=== PATIENT | male | born 1995 | race Caucasian/White ===

== ENCOUNTER 2024-05-30 22:05 | Inpatient (IN) | payer MEDICAID, SELFPAY ==
--- NOTE | 2024-05-30 | ECG_ITS ---
Test Reason : drug use Blood Pressure : / mmHG Vent. Rate : 081 BPM Atrial Rate : 081 BPM P-R Int : 128 ms QRS Dur : 084 ms QT Int : 394 ms P-R-T Axes : 030 069 045 degrees QTc Int : 457 ms Normal sinus rhythm with sinus arrhythmia Normal ECG No previous ECGs available Referred By: Generic ED Physician Electronically Signed By:Willem Sebastian
[2024-05-30 22:25] VITALS: BP 153/72; PULSE 83; PULSE 86; RESP 14; TEMP 37.3; O2SAT 99; BMI 28.8
[2024-05-30 23:04] LABS: MANUAL DIFF FLAG NO
[2024-05-30 23:10] LABS: Basophils Percent Auto 0.3 % (0-2); Eosinophils Percent Auto 0.3 % (0-4); Hematocrit 37.2 % (42.0-52.0); Hemoglobin 13.3 g/dl (14.0-18.0); Imm Gran Abs Auto 0.02 X10*3/uL (0.00-0.03); Imm Gran Pct Auto 0.2 % (0.0-0.4); Lymphocytes Absolute Auto 2.3 X10*3/uL (1.2-4.9); Lymphocytes Percent Auto 21.1 % (20-40); Mean Corpuscular HGB Conc 35.8 g/dl (31.0-36.0); Mean Corpuscular Volume 89.6 fL (80.0-98.0); Monocytes Absolute Auto 0.9 X10*3/uL (0.1-1.2); Monocytes Percent Auto 7.9 % (2-11); Neutrophils Absolute Auto 7.6 x10*3/uL (2.0-8.3); Neutrophils Percent Auto 70.2 % (45-73); Platelet Count 277 X10*3/uL (160-400); Red Blood Count 4.15 X10*6/uL (4.60-5.80); Red Cell Distribution Width 13.3 % (11.0-16.0); White Blood Count 10.8 X10*3/uL (4.8-10.8)
[2024-05-30 23:21] LABS: Amphetamine Screen Urine Not Detected (Not Detect); Barbiturates, Urine Not Detected (Not Detect); Benzodiazepines Screen Urine Not Detected (Not Detect); Buprenorphine Scr Positive (Not Detect); Cannabinoid Screen Urine Not Detected (Not Detect); Cocaine Screen Urine POSITIVE (Not Detect); Fentanyl, urine POSITIVE (Not Detect); Methadone Screen, Urine Not Detected (Not Detect); Opiate Screen Urine POSITIVE (Not Detect); Oxycodone Screen Urine Not Detected (Not Detect); Phencyclidine Screen Urine Not Detected (Not Detect)
--- NOTE | 2024-05-30 23:29 | ED.PSYCH ---
HPI - Psych General Chief Complaint: Psychiatric Symptoms Stated Complaint: heart palpatations Time Seen by Provider: 05/30/24 22:52 Source: patient and EMS Mode of arrival: EMS Limitations: no limitations History of Present Illness HPI Narrative: Patient is a 28-year-old male who presents emergency department for evaluation. He states of for approximately 6 months he has been experiencing auditory hallucinations, however over the past month they have been getting worrisome have changed in nature. He states that they are aggressive and threatening. ?I am going to pull your eyes out?, ?I am going to kill you and slipped your throat?. Also endorsed to nursing staff that he is having visual hallucinations seeing ?demons? he does not often this complaint to myself personally. He states he has never been diagnosed with schizophrenia in the past. Does not have a therapist or a psychiatrist. She does admit to polysubstance use, denies any recent new substances. He has been experiencing occasional episodes of chest ?bubbling and palpitations?. He can not provide me much history as to when this appears but it has been intermittent ?for awhile?. Denies headache, vision changes, neck pain, chest pain, shortness of breath, numbness or tingling of the extremities, abdominal pain, nausea, vomiting, genitourinary symptoms. Related Data Home Medications ?Medication ?Instructions ?Recorded ?Confirmed No Known Home Meds 05/31/24 05/31/24 Allergies Allergy/AdvReac Type Severity Reaction Status Date / Time No Known Allergies Allergy Verified 05/30/24 22:34 Review of Systems Review of Systems: Yes all other systems are reviewed and are negative PMFSH Past Medical History Attestation statement: The following information was validated with the patient. Source: old records reviewed Social History Social History Alcohol intake: current Alcohol intake frequency: 3 or more drinks per day Alcohol type: beer Smoked in Last 30 Days: Yes Use of substances other than those prescribed or required for medical reasons: Yes Substance Use Type: Crack/Cocaine and IV Drugs Substance Use Frequency: Daily Last Used Substance: Hours (ago) Any prior treatment program specific to substance use: Yes Advance Directives: No Advance Directives Information Provided: Yes Physical Exam Vital Signs: Vital Signs: Last Vital Signs Temp 97.6 F 05/31/24 03:36 Pulse 78 05/31/24 03:36 Resp 9 L 05/31/24 03:36 BP 126/57 L 05/31/24 02:31 Pulse Ox 98 05/31/24 03:36 O2 Del Method Room Air 05/31/24 03:36 BMI result Body Mass Index 28.8 Appearance: Alert.?Oriented to person, place and time. No acute distress.?Normal affect. Eyes: Pupils equal, round and reactive to light.? ENT: Pharynx normal.?? Neck: Normal inspection.? Neck supple.?? CVS: Heart sounds normal. Normal heart rate and rhythm.? Pulses normal.?? Respiratory: No respiratory distress.? Lung sounds clear to auscultation bilaterally?? Abdomen: Soft and non-tender. Normoactive bowel sounds. Skin: Skin warm and dry.? Normal skin color.? Extremities: No lower extremity edema.? Neuro: Moves all extremities spontaneously. Sensation intact bilaterally. CN II-XII intact. No focal neuro deficits. Ambulates with normal steady gait. Medications Administered Discontinued Medications Generic Name Dose Route Start Last Admin Trade Name Freq PRN Reason Stop Dose Admin Lorazepam 2 mg 05/31/24 03:29 05/31/24 03:38 Lorazepam 1 Mg Tablet PO 05/31/24 03:30 2 mg ONCE ONE Administration Medical Decision Making Medical Decision Making MDM Narrative: Patient is a 28-year-old male who presents emergency department for evaluation of auditory and visual hallucinations in addition to palpitations as per HPI. Overall he is well-appearing, nontoxic, afebrile. No respiratory distress. Speaking clear full sentences. Seems to provide a clear history of auditory hallucinations over the past 6 months have changed in quality and becoming more threatening in nature over the past month. He denies suicidal or homicidal ideations. He does admit to polysubstance use denies any new illicit drug usage he has not previously experienced in the past. 05/31/2024 at 07:07 hours, Dr. Prasanth Denton's note Physician observation continued 28-year-old male who presents emergency department for auditory hallucinations. Patient's urine tox screen was positive for opiates, buprenorphine, fentanyl, cocaine. Patient was been in the emergency department for 9 hours. Patient has been seen by the care team and is in in-patient bed search. No reported incidents on this patient by the overnight nursing staff. Patient will remain in the emergency department Behavioral Health Unit until disposition can be determined or until patient's symptoms improve over time. Differential Diagnosis Differential Diagnoses: The differential diagnosis associated with the presentation includes Palpitations; and anemia, arrhythmia, electrolyte derangement, anxiety, polysubstance use Auditory and visual hallucinations; polysubstance use, schizophrenia, psychosis Admission/Observation Consideration of admission/observation: Escalation of care including admission/observation considered Patient is being observed in the Emergency Department for auditory and visual hallucinations of onset Observation time was started at 00:00 on 05/31/2024.?The patient is currently stable and non-toxic appearing. Observation is being initiated in the Emergency Department to allow time to help differentiate if the patient's hallucinations is due to Substance Induced psychosis, bipolar que, anxiety, and Schizophrenia. The patient will receive frequent psychiatric assessments from the provider as well as from nursing staff. The patient will also be monitored for the need of PRN agitation medications such as Haldol, Ativan, and Benadryl. Consult Healthcare Provider Management of the patient was discussed with: Behavioral Health Provider Lab Data MDM Lab Attestation statement: I reviewed the patient's lab results. CBC is without leukocytosis, has a very mild normocytic anemia that does not meet transfusion criteria; hemoglobin of 13.3 hematocrit 37.2. No electrolyte derangement. No BALDEV. High sensitive troponin within normal range. TSH is normal. Urine toxicology positive for opiates, Suboxone, fentanyl, cocaine. Alcohol level nondetectable. Viral serologies are negative. 05/30/24 22:55 05/30/24 22:55 Labs: Lab Results 05/30/24 05/30/24 Range/Units 22:55 22:57 WBC 10.8 (4.8-10.8) X10*3/uL RBC 4.15 L (4.60-5.80) X10*6/uL Hgb 13.3 L (14.0-18.0) g/dl Hct 37.2 L (42.0-52.0) % MCV 89.6 (80.0-98.0) fL MCH 32.0 (27.0-33.0) pg MCHC 35.8 (31.0-36.0) g/dl RDW 13.3 (11.0-16.0) % Plt Count 277 (160-400) X10*3/uL MPV 9.0 L (9.4-12.4) fL Immature Gran % (Auto) 0.2 (0.0-0.4) % Neut % (Auto) 70.2 (45-73) % Lymph % (Auto) 21.1 (20-40) % Campbell % (Auto) 7.9 (2-11) % Eos % (Auto) 0.3 (0-4) % Baso % (Auto) 0.3 (0-2) % Lymph # (Auto) 2.3 (1.2-4.9) X10*3/uL Campbell # (Auto) 0.9 (0.1-1.2) X10*3/uL Eos # (Auto) 0.0 (0.0-0.4) X10*3/uL Baso # (Auto) 0.0 (0.0-0.2) X10*3/uL Abs Immat Gran (auto) 0.02 (0.00-0.03) X10*3/uL Absolute Neuts (auto) 7.6 (2.0-8.3) x10*3/uL Absolute Nucleated RBC 0.000 (0.0-0.012) X10*3/uL Nucleated RBC % (auto) 0.0 (0.0-0.2) /100WBC Sodium 141 (135-145) mmol/L Potassium 3.7 (3.3-5.1) mmol/L Chloride 105 (96-108) mmol/L Carbon Dioxide 25 (22-29) mmol/L Anion Gap 15 (12-20) BUN 19 H (9-16) mg/dL Creatinine 0.90 (0.5-1.4) mg/dL Estim Creat Clear Calc 145.8 Estimated GFR > 60 Random Glucose 97 (60-115) mg/dL Calcium 9.4 (8.4-10.2) mg/dL Total Bilirubin 0.8 (0.0-1.0) mg/dL AST 113 H (5-37) U/L ALT 84 H (0-40) U/L Alkaline Phosphatase 69 (39-117) U/L Troponin I High Sens 11.2 (<3.5-35.0) ng/L Total Protein 7.7 (6.5-8.0) g/dL Albumin 4.3 (3.5-5.0) g/dL TSH 0.56 Cancelled (0.32-4.0) uIU/mL Urine Opiates Screen POSITIVE H (Not Detect) Ur Buprenorphine Scrn Positive H (Not Detect) ng/mL Ur Oxycodone Screen Not Detected (Not Detect) ng/mL Urine Methadone Screen Not Detected (Not Detect) ng/mL Urine Fentanyl Screen POSITIVE H (Not Detect) Ur Barbiturates Screen Not Detected (Not Detect) Ur Phencyclidine Scrn Not Detected (Not Detect) Ur Amphetamines Screen Not Detected (Not Detect) U Benzodiazepines Scrn Not Detected (Not Detect) Urine Cocaine Screen POSITIVE H (Not Detect) U Marijuana (THC) Screen Not Detected (Not Detect) Ethyl Alcohol < 10 mg/dL Influenza Type A (PCR) NEGATIVE (Negative) Influenza Type B (PCR) NEGATIVE (Negative) RSV RNA Qual (PCR) NEGATIVE (Negative) SARS-CoV-2 RNA (RT-PCR) NEGATIVE (Negative) Independent Interpretation I performed an independent interpretation of an: EKG Interpretation: EKG revealing a normal sinus rhythm with ventricular rate of 81, normal ERNESTO, QTC 457, no ST elevation, no ST depression. Chronic Conditions Patient?s care impacted by: Other (See narrative above) Discharge Plan Discharge Clinical Impression: Auditory hallucination, Palpitations Patient Disposition: Still a Patient Prescriptions: No Action No Known Home Meds Interventions: [place]-Suicide Risk Severity Scale Last Done: 05/30/24 22:35 Print Language: [place]ese
[2024-05-30 23:31] LABS: Troponin-I High Sensitivity 11.2 ng/L (<3.5-35.0)
[2024-05-30 23:32] LABS: Albumin Level 4.3 g/dL (3.5-5.0); Alkaline Phosphatase 69 U/L (39-117); Anion Gap 15 (12-20); Aspartate Amino Transferase 113 U/L (5-37); Bilirubin Total 0.8 mg/dL (0.0-1.0); Blood Urea Nitrogen 19 mg/dL (9-16); Calcium 9.4 mg/dL (8.4-10.2); Carbon Dioxide 25 mmol/L (22-29); Chloride 105 mmol/L (96-108); Creatinine Clr Calc Pharmacy 145.8; Estimated Glomerular Filt Rate > 60; Ethanol < 10 mg/dL; Glucose Random 97 mg/dL (60-115); Potassium 3.7 mmol/L (3.3-5.1); Sodium 141 mmol/L (135-145); Total Protein 7.7 g/dL (6.5-8.0)
[2024-05-30 23:38] LABS: Alanine Aminotransferase 84 U/L (0-40)
[2024-05-30 23:48] LABS: Influenza A PCR NEGATIVE (Negative); Influenza B PCR NEGATIVE (Negative); Resp Syncy Virus RNA Qual PCR NEGATIVE (Negative); SARS COV2 PCR INHOUSE NEGATIVE (Negative)
[2024-05-30 23:51] LABS: TSH reflex Free T4 0.56 uIU/mL (0.32-4.0)
[2024-05-31 00:18] VITALS: BP 121/66; PULSE 72; RESP 12; TEMP 36.7; O2SAT 95
[2024-05-31 02:31] VITALS: BP 126/57; PULSE 71; RESP 13
[2024-05-31 03:36] VITALS: PULSE 78; RESP 9; TEMP 36.4; O2SAT 98
[2024-05-31] MEDS: LORazepam 1 MG TABLET 2 MG PO ×2 (03:38→20:49)
--- NOTE | 2024-05-31 06:00 | PC.NURSE ---
patient appears to be having night terrors/nightmares. patient has had 3 episodes of calling out as yet.
[2024-05-31 09:06] VITALS: BP 129/71; PULSE 65; RESP 16; TEMP 36.6; O2SAT 97
--- NOTE | 2024-05-31 10:46 | PHA.MEDREC ---
Addendum entered by Emiliano Fontana 05/31/24 10:55: reviewed Original Note: Pharmacy Consult ? Medication Reconciliation Pharmacy reviewed med rec done by nursing. No Known Home Meds confirmed on med rec and after looking at and updating claims, no medication history is found at this time for this patient.
[2024-05-31 11:49] VITALS: BMI 28.3
[2024-05-31 11:50] VITALS: BP 153/78; PULSE 86; RESP 18; TEMP 36.9; O2SAT 96
--- NOTE | 2024-05-31 17:18 | PC.ADMIT ---
Talon was admitted to approx at 1150, on a 12b. He self-presented to the ED for increased AVH. Talon denies any past medical history. Talon reportedly walked to [facility] ED, from [place]. His feet were raw & macerated upon assessment, no open wounds, few callouses. Skin check unremarkable, other than a superficial scratch noted on his left interior forearm. Pt denies self-harm, denies SI/HI. During Care Team assessment, pt reported that he had been experiencing both AH & VH which had been worsening over last month.Talon reported that he fled his father's house, where he has been living, because he could here the voices saying they were going to cut him up & he could see demons in his room. Upon intake, patient states that he wants to be discharged. When asked why he said all of that, he states I made it all up, because I'd walked too far & I didn't think they would let me sleep here the night. Provider explained that he will need to stay and be evaluated. He was cooperative with rest of the process. Talon endorses regular use of cocaine & heroin, in addition to daily alcohol consumption of six beers. Tox screen positive for fentanyl, opiates, cocaine & suboxone. Talon declined to sign a CV and declined to sign any releases. He is placed on regular diet and 15 minute safety checks at this time.?
[2024-05-31] MEDS: Buprenorphine/Naloxone 8/2 mg FILM 1 FILM SUBLINGUAL (18:15)
[2024-05-31 20:00] VITALS: BP 128/85; PULSE 76; RESP 15; TEMP 36.9; O2SAT 96
[2024-05-31] MEDS: traZODone HCL 50 MG TABLET PO (20:46)
[2024-05-31] MEDS: hydrOXYzine HCL 25 MG TABLET PO (20:46)
[2024-06-01 08:00] VITALS: BP 127/66; PULSE 78; RESP 20; TEMP 36.7; O2SAT 99
--- NOTE | 2024-06-01 09:00 | HO.PSYADMNOT ---
HPI Date of Service: 06/01/24 Chief Complaint: Auditory and visual perceptual alterations Sources of Information: patient interviewed, chart reviewed and crisis/core team assessment reviewed HPI Subjective Notes: Gloria Warning and Conditional Voluntary Narrative: Patient is a 28-year-old male with history of psychotic symptoms, polysubstance abuse with IV opioid, crack cocaine use disorder who self presents for paranoid delusions and hearing frightening AH. When presenting in the ED, patient reported to staff there that he was hearing voices saying? they are going to try equalize him and cut him up or they are going to rip his eyes out.? ?He reported seeing demons or black or herbs and expressed fear that they were sent to kill him. ?Patient reports hearing voices over the past month that have worsened and that but ran away from his home where he was living in [place] with his father, because of the voices and what they were saying. Patient gave details saying there were Two different voices, one is loud saying they will rip him up, cut his eyes out and another which is softer saying they are going to tranquilizers him 1st and then cut him up. He reported delusional thought that someone put witchcraft on him; he does not think it is his mind playing tricks on him and AH is keeping him from sleeping. Today on unit patient reports to administrative underwriter that he made all of this up. He denies any AH at all or any paranoid delusions. He said he no longer wanted to live at his father's house, not getting along with his father and so left to come down to [facility]. His plan was to [place] kidney thought would only take few hours but he was not able to get a ride and so ended up walking for 3 days. He reports that When he got here his feet were extremely cold and so he came to the emergency room. Because he was worried about being turned away, he says made up everything about AH and paranoid delusions, or any history of AVH. He denies any SI or HI or any history of SI at all. He acknowledges that he uses crack cocaine, fentanyl; says very little alcohol use. Patient reports he has some depression but thinks it is mostly from ADHD and says he would like to be on stimulant medication. Patient denies any history of manic type episodes or behaviors. Patient seen around 11:00 on 06/01 Past Psychiatric History: discharged from [facility] a few months ago; says multiple admissions there Medical Evaluation Reviewed: Yes Mild to moderately elevated LFTs [facility] Medical History (Updated 06/01/24 @ 15:11 by Janak Guzman MD) Opioid use disorder Cocaine use disorder Depression, major, recurrent, mild Family History: Denies Social History: Born in [place] Was living with his father in [place]; says not a good relationship Says almost but did not graduate high school Patient reports he has children but he never sees them Substance History: Currently using crack cocaine and IV fentanyl/heroin Started using cannabis and cocaine at 14 years old Started using heroin/fentanyl at 19 years old including IV drug use Trauma History: Deferred Diagnostics Vital Signs (24Hr): Vital Signs - 24 hr 05/31/24 09:06 05/31/24 11:50 05/31/24 20:00 Temperature 97.9 F 98.5 F 98.5 F Pulse Rate 65 86 76 Respiratory Rate 16 18 15 Blood Pressure 129/71 153/78 H 128/85 Pulse Oximetry 97 96 96 Oxygen Delivery Method Room Air Room Air BMI result Body Mass Index 28.3 Labs 05/30/24 22:55 06/01/24 11:18 Labs: Laboratory Results - last 48 hr 05/30/24 05/30/24 22:55 22:57 WBC 10.8 RBC 4.15 L Hgb 13.3 L Hct 37.2 L MCV 89.6 MCH 32.0 MCHC 35.8 RDW 13.3 Plt Count 277 MPV 9.0 L Immature Gran % (Auto) 0.2 Neut % (Auto) 70.2 Lymph % (Auto) 21.1 Bath % (Auto) 7.9 Eos % (Auto) 0.3 Baso % (Auto) 0.3 Lymph # (Auto) 2.3 Bath # (Auto) 0.9 Eos # (Auto) 0.0 Baso # (Auto) 0.0 Abs Immat Gran (auto) 0.02 Absolute Neuts (auto) 7.6 Absolute Nucleated RBC 0.000 Nucleated RBC % (auto) 0.0 Sodium 141 Potassium 3.7 Chloride 105 Carbon Dioxide 25 Anion Gap 15 BUN 19 H Creatinine 0.90 Estim Creat Clear Calc 145.8 Estimated GFR > 60 Random Glucose 97 Calcium 9.4 Total Bilirubin 0.8 AST 113 H ALT 84 H Alkaline Phosphatase 69 Troponin I High Sens 11.2 Total Protein 7.7 Albumin 4.3 TSH 0.56 Cancelled Urine Opiates Screen POSITIVE H Ur Buprenorphine Scrn Positive H Ur Oxycodone Screen Not Detected Urine Methadone Screen Not Detected Urine Fentanyl Screen POSITIVE H Ur Barbiturates Screen Not Detected Ur Phencyclidine Scrn Not Detected Ur Amphetamines Screen Not Detected U Benzodiazepines Scrn Not Detected Urine Cocaine Screen POSITIVE H U Marijuana (THC) Screen Not Detected Ethyl Alcohol < 10 Influenza Type A (PCR) NEGATIVE Influenza Type B (PCR) NEGATIVE RSV RNA Qual (PCR) NEGATIVE SARS-CoV-2 RNA (RT-PCR) NEGATIVE Meds/Allergies Meds Home Medications ?Medication ?Instructions ?Recorded ?Confirmed ?Type No Known Home Meds 05/31/24 05/31/24 History Allergies Allergies Allergy/AdvReac Type Severity Reaction Status Date / Time No Known Allergies Allergy Verified 05/30/24 22:34 Mental Status Exam Mental Status Exam Narrative: Pt is alert and oriented; behavior is guarded but not uncooperative; calm; patient is not in distress; dressed in hospital attire with adequate hygiene; mood is described as okay and affect congruent; eye contact appropriate; Speech is a little latent but mostly normal rate, volume and prosody and not pressured; no psychomotor agitation/retardation present; thought process is organized and goal directed; Thought content is on discharge, saying he lied about AH, delusions in order to get a bed; denies any SI/HI. Denies AVH; not clear if he is internally preoccupied. Patients insight and judgment impaired Assessment & Plan Assessment & Plan (1) Psychosis: Status: Acute Code(s): F29 - Unspecified psychosis not due to a substance or known physiological condition Assessment and Plan: Rule out substance induced Rule out malingering (2) Depression, major, recurrent, mild: Status: Acute Code(s): F33.0 - Major depressive disorder, recurrent, mild (3) Cocaine use disorder: Status: Acute Code(s): F14.10 - Cocaine abuse, uncomplicated (4) Opioid use disorder: Status: Acute Code(s): F11.90 - Opioid use, unspecified, uncomplicated Plan Patient is a 28-year-old male with history of psychotic symptoms, polysubstance abuse with IV opioid, crack cocaine use disorder who self presents for paranoid delusions and hearing frightening AH. When presenting in the ED, patient reported to staff there that he was hearing voices saying? they are going to try equalize him and cut him up or they are going to rip his eyes out.? ?He reported seeing demons or black or herbs and expressed fear that they were sent to kill him. ?Patient reports hearing voices over the past month that have worsened and that but ran away from his home where he was living in [place] with his father, because of the voices and what they were saying. Patient gave details saying there were Two different voices, one is loud saying they will rip him up, cut his eyes out and another which is softer saying they are going to tranquilizers him 1st and then cut him up. He reported delusional thought that someone put witchcraft on him; he does not think it is his mind playing tricks on him and AH is keeping him from sleeping. Today on unit patient reports to administrative underwriter that he made all of this up. He denies any AH at all or any paranoid delusions. He said he no longer wanted to live at his father's house, not getting along with his father and so left to come down to [facility]. His plan was to [place] kidney thought would only take few hours but he was not able to get a ride and so ended up walking for 3 days. He reports that When he got here his feet were extremely cold and so he came to the emergency room. Because he was worried about being turned away, he says made up everything about AH and paranoid delusions, or any history of AVH. He denies any SI or HI or any history of SI at all. He acknowledges that he uses crack cocaine, fentanyl; says very little alcohol use. Patient reports he has some depression but thinks it is mostly from ADHD and says he would like to be on stimulant medication. Patient denies any history of manic type episodes or behaviors. Formulation/clinical reasoning Currently it is not clear if patient actually does have psychotic illness with AH and delusions or if he was in fact malingering, fabricating his symptoms in order to get a place to sleep. Or if substance- induced psychosis, though if this were the case, patient may be more willing to disclose . Patient is now asking for discharge. He is a little guarded and perhaps internally preoccupied though full have to continue to monitor to further discern. Patient does not want medication or treatment other than stimulant medication for ADHD. Cupola Tender Helper explained that given his self report of AH and paranoid delusions, it would not be appropriate to start patient on stimulant medication at this time. Plan: Twelve B Q 15 minute checks Patient refuses treatment Continue to monitor for psychosis, depression Will attempt collateral Patient educated on: diagnosis, medication risk/benefits and substance abuse Informed Consent: understands and further education needed Reason for continued inpatient stay Substantial Risk for: rapid decompensation Statement Statement: I have reviewed the history and physical and performed a pertinent examination on my patient. No changes have occurred unless specified. If the History and Physical was not performed prior to admission, the Hospitalist's service will be consulted for completing the admission physical. Time Spent With Patient Time: Total time managing care of this patient today ____ minutes.
[2024-06-01] MEDS: Folic Acid 1 MG TABLET PO (09:04)
[2024-06-01] MEDS: Buprenorphine/Naloxone 8/2 mg FILM 1 FILM SUBLINGUAL (09:04)
[2024-06-01] MEDS: OLANZapine 5 MG TABLET PO ×2 (09:04→20:16)
[2024-06-01] MEDS: Thiamine HCL 100 MG TABLET PO (09:04)
[2024-06-01] MEDS: Multivitamin TABLET 1 TAB PO (09:04)
[2024-06-01] MEDS: LORazepam 1 MG TABLET PO (09:23)
[2024-06-01 12:03] VITALS: BP 142/71; PULSE 111; RESP 20; TEMP 36.4; O2SAT 98
[2024-06-01 12:14] LABS: Alanine Aminotransferase 71 U/L (0-40); Alkaline Phosphatase 65 U/L (39-117); Anion Gap 10 (12-20); Aspartate Amino Transferase 57 U/L (5-37); Bilirubin Total 0.4 mg/dL (0.0-1.0); Blood Urea Nitrogen 19 mg/dL (9-16); Calcium 9.5 mg/dL (8.4-10.2); Carbon Dioxide 31 mmol/L (22-29); Chloride 106 mmol/L (96-108); Cholesterol 161 mg/dL (<200); Creatinine Clr Calc Pharmacy 164.7; Estimated Average Glucose 94 mg/dL; Estimated Glomerular Filt Rate > 60; Glucose Fasting 70 mg/dL (60-99); HDL Cholesterol 73 mg/dL (>40); Hemoglobin A1C 99.8838 umol/L; Hemoglobin A1c % 4.9 % (<6.0); LDL Cholesterol Calculated 68 mg/dL (<100); Magnesium 2.1 mg/dL (1.6-2.6); Sodium 143 mmol/L (135-145); Total Hemoglobin (HGBA1C) 3378.4543 umol/L; Total Protein 7.4 g/dL (6.5-8.0); Triglycerides 100 mg/dL (<150)
[2024-06-01 12:21] LABS: Free T4 (Free Thyroxine) 1.32 ng/dL (0.71-1.85); Thyroid Stimulating Hormone 0.42 uIU/mL (0.32-4.0)
[2024-06-01 12:34] LABS: Folate 16.6 ng/mL (> or = 4.0); Vitamin B12 322 pg/mL (200-900)
[2024-06-01 16:00] VITALS: BP 132/74; PULSE 85; RESP 20; O2SAT 97
[2024-06-01 19:58] VITALS: BP 149/79; PULSE 88; RESP 15; O2SAT 97
[2024-06-01] MEDS: traZODone HCL 50 MG TABLET PO (20:16)
[2024-06-01] MEDS: hydrOXYzine HCL 25 MG TABLET PO (20:16)
[2024-06-02 08:00] VITALS: BP 126/72; PULSE 71; RESP 18; TEMP 36.5; O2SAT 97
[2024-06-02] MEDS: Folic Acid 1 MG TABLET PO (08:09)
[2024-06-02] MEDS: OLANZapine 5 MG TABLET PO ×2 (08:09→20:41)
[2024-06-02] MEDS: Multivitamin TABLET 1 TAB PO (08:10)
[2024-06-02] MEDS: Thiamine HCL 100 MG TABLET PO (08:10)
[2024-06-02] MEDS: Buprenorphine/Naloxone 8/2 mg FILM 1 FILM SUBLINGUAL (08:47)
--- NOTE | 2024-06-02 10:33 | HO.PSYCHPN ---
Subjective Subjective Date of Service: 06/02/24 Reason For Visit: Auditory and visual perceptual alterations Interim History: Met with patient; discussed with team Patient out in the milieu but mostly keeping to himself. He remains adamant that all former reporting of psychotic symptoms were fabricated, denies any AVH, SI, HI. Patient says he is mostly looking for discharge. Mental Status Exam Mental Status Exam Narrative: Pt is alert and oriented; behavior is less guarded and more cooperative; calm; patient is not in distress; dressed in hospital attire with adequate hygiene; mood is described as okay and affect congruent; eye contact appropriate; Speech is a little latent but mostly normal rate, volume and prosody and not pressured; no psychomotor agitation/retardation present; thought process is organized and goal directed; Thought content is on discharge, saying he lied about AH, delusions in order to get a bed; denies any SI/HI. Denies AVH; not clear if he is internally preoccupied. Patients insight and judgment impaired Diagnostics Vital Signs (24Hr): Vital Signs - 24 hr 06/01/24 12:03 06/01/24 16:00 06/01/24 19:58 Temperature 97.5 F Pulse Rate 111 H 85 88 Respiratory Rate 20 20 15 Blood Pressure 142/71 H 132/74 149/79 H Pulse Oximetry 98 97 97 Oxygen Delivery Method Room Air Room Air 06/02/24 08:00 Temperature 97.7 F Pulse Rate 71 Respiratory Rate 18 Blood Pressure 126/72 Pulse Oximetry 97 Oxygen Delivery Method Room Air BMI result Body Mass Index 28.3 Labs 05/30/24 22:55 06/01/24 11:18 Labs: Laboratory Results - last 48 hr 06/01/24 11:18 Sodium 143 Potassium 4.0 Chloride 106 Carbon Dioxide 31 H Anion Gap 10 L BUN 19 H Creatinine 0.79 Estim Creat Clear Calc 164.7 Estimated GFR > 60 Fasting Glucose 70 Estimat Average Glucose 94 Hemoglobin A1c % 4.9 Calcium 9.5 Magnesium 2.1 Total Bilirubin 0.4 AST 57 H ALT 71 H Alkaline Phosphatase 65 Total Protein 7.4 Albumin 4.0 Triglycerides 100 Cholesterol 161 LDL Cholesterol, Calc 68 HDL Cholesterol 73 Vitamin B12 322 Folate 16.6 TSH 0.42 Free T4 1.32 Medications Medications Current Medications Acetaminophen (Acetaminophen 325 Mg Tablet) 650 mg PO Q6H PRN PRN Reason: Headache/Pain Mild Scale (1-3) Al Hydroxide/Mg Hydroxide (Magnesium Hydrox/Alum Hydrox 30 Ml Oral.Susp) 30 ml PO Q6H PRN PRN Reason: Heartburn/Nausea Buprenorphine/Naloxone (Buprenorphine/Naloxone 8/2 Mg Film) 1 film SUBLINGUAL DAILY [facility] Last Admin: 06/02/24 08:47 Dose: 1 film Folic Acid (Folic Acid 1 Mg Tablet) 1 mg PO DAILY [facility] Last Admin: 06/02/24 08:09 Dose: 1 mg Hydroxyzine HCl (Hydroxyzine Hcl 25 Mg Tablet) 25 mg PO Q6H PRN PRN Reason: Anxiety Last Admin: 06/01/24 20:16 Dose: 25 mg Lorazepam (Lorazepam 1 Mg Tablet) 1 mg PO Q2H PRN PRN Reason: ciwa 6-10 Last Admin: 06/01/24 09:23 Dose: 1 mg Lorazepam (Lorazepam 1 Mg Tablet) 2 mg PO Q2H PRN PRN Reason: ciwa 11+ Last Admin: 05/31/24 20:49 Dose: 2 mg Magnesium Hydroxide (Milk Of Magnesia 30 Ml Oral.Susp) 30 ml PO DAILY PRN PRN Reason: Constipation Multivitamins/Vitamin C (Multivitamin Tablet) 1 tab PO DAILY [facility] Last Admin: 06/02/24 08:10 Dose: 1 tab Nicotine (Nicotine 21 Mg Patch.Td24) 21 mg TRANSDERMA DAILY PRN PRN Reason: nicotine cravings Nicotine Polacrilex (Nicotine Polacrilex 2 Mg Gum) 4 mg BUCCAL Q2H PRN PRN Reason: Nicotine Cravings Olanzapine (Olanzapine 5 Mg Tablet) 5 mg PO Q4H PRN PRN Reason: psychosis sx Olanzapine (Olanzapine 5 Mg Tablet) 5 mg PO BID [facility] Last Admin: 06/02/24 08:09 Dose: 5 mg Thiamine HCl (Thiamine Hcl 100 Mg Tablet) 100 mg PO DAILY [facility] Last Admin: 06/02/24 08:10 Dose: 100 mg Trazodone HCl (Trazodone Hcl 50 Mg Tablet) 50 mg PO BEDTIME MRX1 PRN PRN Reason: Insomnia Last Admin: 06/01/24 20:16 Dose: 50 mg Allergies Allergies Allergy/AdvReac Type Severity Reaction Status Date / Time No Known Allergies Allergy Verified 05/30/24 22:34 Assessment & Plan Assessment & Plan (1) Psychosis: Status: Acute Code(s): F29 - Unspecified psychosis not due to a substance or known physiological condition Assessment and Plan: Rule out substance induced Rule out malingering (2) Depression, major, recurrent, mild: Status: Acute Code(s): F33.0 - Major depressive disorder, recurrent, mild (3) Cocaine use disorder: Status: Acute Code(s): F14.10 - Cocaine abuse, uncomplicated (4) Opioid use disorder: Status: Acute Code(s): F11.90 - Opioid use, unspecified, uncomplicated Plan Patient is a 28-year-old male with history of psychotic symptoms, polysubstance abuse with IV opioid, crack cocaine use disorder who self presents for paranoid delusions and hearing frightening AH. When presenting in the ED, patient reported to staff there that he was hearing voices saying? they are going to try equalize him and cut him up or they are going to rip his eyes out.? ?He reported seeing demons or black or herbs and expressed fear that they were sent to kill him. ?Patient reports hearing voices over the past month that have worsened and that but ran away from his home where he was living in [place] with his father, because of the voices and what they were saying. Patient gave details saying there were Two different voices, one is loud saying they will rip him up, cut his eyes out and another which is softer saying they are going to tranquilizers him 1st and then cut him up. He reported delusional thought that someone put witchcraft on him; he does not think it is his mind playing tricks on him and AH is keeping him from sleeping. Today on unit patient reports to insurance writer that he made all of this up. He denies any AH at all or any paranoid delusions. He said he no longer wanted to live at his father's house, not getting along with his father and so left to come down to [facility]. His plan was to [place] kidney thought would only take few hours but he was not able to get a ride and so ended up walking for 3 days. He reports that When he got here his feet were extremely cold and so he came to the emergency room. Because he was worried about being turned away, he says made up everything about AH and paranoid delusions, or any history of AVH. He denies any SI or HI or any history of SI at all. He acknowledges that he uses crack cocaine, fentanyl; says very little alcohol use. Patient reports he has some depression but thinks it is mostly from ADHD and says he would like to be on stimulant medication. Patient denies any history of manic type episodes or behaviors. Formulation/clinical reasoning Currently it is not clear if patient actually does have psychotic illness with AH and delusions or if he was in fact malingering, fabricating his symptoms in order to get a place to sleep. Or if substance- induced psychosis, though if this were the case, patient may be more willing to disclose . Patient is now asking for discharge. He is a little guarded and perhaps internally preoccupied though full have to continue to monitor to further discern. Patient does not want medication or treatment other than stimulant medication for ADHD. Central Processing Technician explained that given his self report of AH and paranoid delusions, it would not be appropriate to start patient on stimulant medication at this time. Hospital course: 06/02 Patient out in the milieu but mostly keeping to himself. He remains adamant that all former reporting of psychotic symptoms were fabricated, denies any AVH, SI, HI. Patient says he is mostly looking for discharge. Somewhat odd, still hard to tell whether not internally preoccupied. Will continue to monitor. However so far good behavioral and impulse control Plan: Twelve B Q 15 minute checks Patient refuses treatment Continue to monitor for psychosis, depression Will attempt collateral Patient educated on: diagnosis Informed Consent: understands Reason for continued inpatient stay Substantial Risk for: rapid decompensation Time Spent With Patient Time: Total time managing care of this patient today ____ minutes.
[2024-06-02 19:51] VITALS: BP 135/72; PULSE 76; RESP 15; TEMP 36.5; O2SAT 99
[2024-06-02] MEDS: hydrOXYzine HCL 25 MG TABLET PO (20:41)
[2024-06-02] MEDS: traZODone HCL 50 MG TABLET PO (20:42)
[2024-06-03 07:58] VITALS: BP 125/74; PULSE 85; RESP 18; TEMP 37.1; O2SAT 98
[2024-06-03] MEDS: Multivitamin TABLET 1 TAB PO (09:41)
[2024-06-03] MEDS: Folic Acid 1 MG TABLET PO (09:41)
[2024-06-03] MEDS: Thiamine HCL 100 MG TABLET PO (09:41)
[2024-06-03] MEDS: Buprenorphine/Naloxone 8/2 mg FILM 1 FILM SUBLINGUAL (09:41)
[2024-06-03] MEDS: OLANZapine 5 MG TABLET PO ×2 (09:42→20:31)
--- NOTE | 2024-06-03 16:16 | P.PNPSI_ITS ---
Subjective Subjective Date of Service: 06/03/24 Reason For Visit: Auditory and visual perceptual alterations Interim History: Met with patient; discussed with team Patient says that he is ok; denies any AVH, SI or HI. He denies depression. He remains difficult with which to engage, not wanting to talk much. Business Account Manager again asked about history and patient said that past hospitalizations were also only due to being homeless and looking for a place to stay, that he said he was depressed but only for that reason. Business Account Manager asked if it was okay for team to call his father to get collateral however patient declined and says he just does not want them involved. Mental Status Exam Mental Status Exam Narrative: Pt is alert and oriented; behavior is superficially cooperative; calm; patient is not in distress; dressed in hospital attire with adequate hygiene; mood is described as okay and affect congruent; eye contact appropriate; Speech is a little latent but mostly normal rate, volume and prosody and not pressured; no psychomotor agitation/retardation present; thought process is organized and goal directed; Thought content is on discharge; denies any SI/HI. Denies AVH; does seem to be internally preoccupied but difficult to tell Patients insight and judgment impaired but likely adequate Diagnostics Vital Signs (24Hr): Vital Signs - 24 hr 06/02/24 19:51 06/03/24 07:58 Temperature 97.7 F 98.7 F Pulse Rate 76 85 Respiratory Rate 15 18 Blood Pressure 135/72 125/74 Pulse Oximetry 99 98 Oxygen Delivery Method Room Air BMI result Body Mass Index 28.3 Labs 05/30/24 22:55 06/01/24 11:18 Medications Medications Current Medications Acetaminophen (Acetaminophen 325 Mg Tablet) 650 mg PO Q6H PRN PRN Reason: Headache/Pain Mild Scale (1-3) Al Hydroxide/Mg Hydroxide (Magnesium Hydrox/Alum Hydrox 30 Ml Oral.Susp) 30 ml PO Q6H PRN PRN Reason: Heartburn/Nausea Buprenorphine/Naloxone (Buprenorphine/Naloxone 8/2 Mg Film) 1 film SUBLINGUAL DAILY [facility] Last Admin: 06/03/24 09:41 Dose: 1 film Folic Acid (Folic Acid 1 Mg Tablet) 1 mg PO DAILY [facility] Last Admin: 06/03/24 09:41 Dose: 1 mg Hydroxyzine HCl (Hydroxyzine Hcl 25 Mg Tablet) 25 mg PO Q6H PRN PRN Reason: Anxiety Last Admin: 12/08/24 20:41 Dose: 25 mg Magnesium Hydroxide (Milk Of Magnesia 30 Ml Oral.Susp) 30 ml PO DAILY PRN PRN Reason: Constipation Multivitamins/Vitamin C (Multivitamin Tablet) 1 tab PO DAILY [facility] Last Admin: 06/03/24 09:41 Dose: 1 tab Nicotine (Nicotine 21 Mg Patch.Td24) 21 mg TRANSDERMA DAILY PRN PRN Reason: nicotine cravings Nicotine Polacrilex (Nicotine Polacrilex 2 Mg Gum) 4 mg BUCCAL Q2H PRN PRN Reason: Nicotine Cravings Olanzapine (Olanzapine 5 Mg Tablet) 5 mg PO Q4H PRN PRN Reason: psychosis sx Olanzapine (Olanzapine 5 Mg Tablet) 5 mg PO BID [facility] Last Admin: 06/03/24 09:42 Dose: 5 mg Thiamine HCl (Thiamine Hcl 100 Mg Tablet) 100 mg PO DAILY [facility] Last Admin: 06/03/24 09:41 Dose: 100 mg Trazodone HCl (Trazodone Hcl 50 Mg Tablet) 50 mg PO BEDTIME MRX1 PRN PRN Reason: Insomnia Last Admin: 06/02/24 20:42 Dose: 50 mg Allergies Allergies Allergy/AdvReac Type Severity Reaction Status Date / Time No Known Allergies Allergy Verified 05/30/24 22:34 Assessment & Plan Assessment & Plan (1) Psychosis: Status: Acute Code(s): F29 - Unspecified psychosis not due to a substance or known physiological condition Assessment and Plan: Rule out substance induced Rule out malingering (2) Depression, major, recurrent, mild: Status: Acute Code(s): F33.0 - Major depressive disorder, recurrent, mild (3) Cocaine use disorder: Status: Acute Code(s): F14.10 - Cocaine abuse, uncomplicated (4) Opioid use disorder: Status: Acute Code(s): F11.90 - Opioid use, unspecified, uncomplicated Plan Patient is a 28-year-old male with history of psychotic symptoms, polysubstance abuse with IV opioid, crack cocaine use disorder who self presents for paranoid delusions and hearing frightening AH. When presenting in the ED, patient reported to staff there that he was hearing voices saying? they are going to try equalize him and cut him up or they are going to rip his eyes out.? ?He reported seeing demons or black or herbs and expressed fear that they were sent to kill him. ?Patient reports hearing voices over the past month that have worsened and that but ran away from his home where he was living in [place] with his father, because of the voices and what they were saying. Patient gave details saying there were Two different voices, one is loud saying they will rip him up, cut his eyes out and another which is softer saying they are going to tranquilizers him 1st and then cut him up. He reported delusional thought that someone put witchcraft on him; he does not think it is his mind playing tricks on him and AH is keeping him from sleeping. Today on unit patient reports to typewriter mechanic that he made all of this up. He denies any AH at all or any paranoid delusions. He said he no longer wanted to live at his father's house, not getting along with his father and so left to come down to [facility]. His plan was to [place] kidney thought would only take few hours but he was not able to get a ride and so ended up walking for 3 days. He reports that When he got here his feet were extremely cold and so he came to the emergency room. Because he was worried about being turned away, he says made up everything about AH and paranoid delusions, or any history of AVH. He denies any SI or HI or any history of SI at all. He acknowledges that he uses crack cocaine, fentanyl; says very little alcohol use. Patient reports he has some depression but thinks it is mostly from ADHD and says he would like to be on stimulant medication. Patient denies any history of manic type episodes or behaviors. Formulation/clinical reasoning Currently it is not clear if patient actually does have psychotic illness with AH and delusions or if he was in fact malingering, fabricating his symptoms in order to get a place to sleep. Or if substance- induced psychosis, though if this were the case, patient may be more willing to disclose . Patient is now asking for discharge. He is a little guarded and perhaps internally preoccupied though full have to continue to monitor to further discern. Patient does not want medication or treatment other than stimulant medication for ADHD. Business Account Manager explained that given his self report of AH and paranoid delusions, it would not be appropriate to start patient on stimulant medication at this time. Hospital course: 06/02 Patient out in the milieu but mostly keeping to himself. He remains adamant that all former reporting of psychotic symptoms were fabricated, denies any AVH, SI, HI. Patient says he is mostly looking for discharge. Somewhat odd, still hard to tell whether not internally preoccupied. Will continue to monitor. However so far good behavioral and impulse control 06/03 patient remains difficult with which to engage, superficially cooperative and not revealing much. It is difficult to tell if he is internally preoccupied. He denies AVH, SI, HI and says that past hospitalizations have also only been due to fabricating depression in order to get hospital bed for the night. Patient keeps to himself, but is in behavioral and impulse control. Will continue to monitor but if he remains stable will proceed with discharge Plan: Twelve B Q 15 minute checks Patient refuses treatment Continue to monitor for psychosis, depression Will attempt collateral Patient educated on: diagnosis, medication risk/benefits and substance abuse Informed Consent: understands and further education needed Reason for continued inpatient stay Substantial Risk for: stable for discharge and rapid decompensation Time Spent With Patient Time: Total time managing care of this patient today ____ minutes.
[2024-06-03 20:00] VITALS: BP 134/74; PULSE 75; RESP 16; TEMP 36.4; O2SAT 96
[2024-06-03] MEDS: hydrOXYzine HCL 25 MG TABLET PO (20:31)
[2024-06-03] MEDS: traZODone HCL 50 MG TABLET PO (20:31)
[2024-06-04 08:05] VITALS: BP 106/66; PULSE 60; TEMP 36.6; O2SAT 93
[2024-06-04] MEDS: OLANZapine 5 MG TABLET PO (08:37)
[2024-06-04] MEDS: Multivitamin TABLET 1 TAB PO (08:37)
[2024-06-04] MEDS: Folic Acid 1 MG TABLET PO (08:37)
[2024-06-04] MEDS: Thiamine HCL 100 MG TABLET PO (08:37)
[2024-06-04] MEDS: Buprenorphine/Naloxone 8/2 mg FILM 1 FILM SUBLINGUAL (08:37)
--- NOTE | 2024-06-04 17:24 | HO.PSYCHPN ---
Subjective Subjective Date of Service: 06/04/24 Reason For Visit: Auditory and visual perceptual alterations Interim History: Met with patient; discussed with team Same presentation; guarded, not really wanting to talk much. Says he is okay and does not need anything; denies all psychiatric symptoms. Remains isolative. Planning to discharge tomorrow Mental Status Exam Mental Status Exam Narrative: Pt is alert and oriented; behavior is superficially cooperative; calm; patient is not in distress; dressed in hospital attire with marginal hygiene; mood is described as okay and affect congruent; eye contact appropriate; Speech is a little latent but mostly normal rate, volume and prosody and not pressured; no psychomotor agitation/retardation present; thought process is organized and goal directed; Thought content is on discharge; denies any SI/HI. Denies AVH. Patients insight and judgment adequate Diagnostics Vital Signs (24Hr): Vital Signs - 24 hr 06/03/24 20:00 06/04/24 08:05 Temperature 97.6 F 97.8 F Pulse Rate 75 60 Respiratory Rate 16 Blood Pressure 134/74 106/66 Pulse Oximetry 96 93 Oxygen Delivery Method Room Air Room Air BMI result Body Mass Index 28.3 Labs 05/30/24 22:55 06/01/24 11:18 Medications Medications Current Medications Acetaminophen (Acetaminophen 325 Mg Tablet) 650 mg PO Q6H PRN PRN Reason: Headache/Pain Mild Scale (1-3) Al Hydroxide/Mg Hydroxide (Magnesium Hydrox/Alum Hydrox 30 Ml Oral.Susp) 30 ml PO Q6H PRN PRN Reason: Heartburn/Nausea Buprenorphine/Naloxone (Buprenorphine/Naloxone 8/2 Mg Film) 1 film SUBLINGUAL DAILY [facility] Last Admin: 06/04/24 08:37 Dose: 1 film Folic Acid (Folic Acid 1 Mg Tablet) 1 mg PO DAILY [facility] Last Admin: 06/04/24 08:37 Dose: 1 mg Hydroxyzine HCl (Hydroxyzine Hcl 25 Mg Tablet) 25 mg PO Q6H PRN PRN Reason: Anxiety Last Admin: 06/03/24 20:31 Dose: 25 mg Magnesium Hydroxide (Milk Of Magnesia 30 Ml Oral.Susp) 30 ml PO DAILY PRN PRN Reason: Constipation Multivitamins/Vitamin C (Multivitamin Tablet) 1 tab PO DAILY [facility] Last Admin: 06/04/24 08:37 Dose: 1 tab Nicotine (Nicotine 21 Mg Patch.Td24) 21 mg TRANSDERMA DAILY PRN PRN Reason: nicotine cravings Nicotine Polacrilex (Nicotine Polacrilex 2 Mg Gum) 4 mg BUCCAL Q2H PRN PRN Reason: Nicotine Cravings Olanzapine (Olanzapine 5 Mg Tablet) 5 mg PO Q4H PRN PRN Reason: psychosis sx Olanzapine (Olanzapine 5 Mg Tablet) 5 mg PO BID [facility] Last Admin: 06/04/24 08:37 Dose: 5 mg Thiamine HCl (Thiamine Hcl 100 Mg Tablet) 100 mg PO DAILY [facility] Last Admin: 06/04/24 08:37 Dose: 100 mg Trazodone HCl (Trazodone Hcl 50 Mg Tablet) 50 mg PO BEDTIME MRX1 PRN PRN Reason: Insomnia Last Admin: 06/03/24 20:31 Dose: 50 mg Allergies Allergies Allergy/AdvReac Type Severity Reaction Status Date / Time No Known Allergies Allergy Verified 05/30/24 22:34 Assessment & Plan Assessment & Plan (1) Depression, major, recurrent, mild: Status: Acute Code(s): F33.0 - Major depressive disorder, recurrent, mild (2) Cocaine use disorder: Status: Acute Code(s): F14.10 - Cocaine abuse, uncomplicated (3) Opioid use disorder: Status: Acute Code(s): F11.90 - Opioid use, unspecified, uncomplicated (4) Malingering: Status: Acute Code(s): Z76.5 - Malingerer [conscious simulation] Plan Patient is a 28-year-old male with history of psychotic symptoms, polysubstance abuse with IV opioid, crack cocaine use disorder who self presents for paranoid delusions and hearing frightening AH. When presenting in the ED, patient reported to staff there that he was hearing voices saying? they are going to try equalize him and cut him up or they are going to rip his eyes out.? ?He reported seeing demons or black or herbs and expressed fear that they were sent to kill him. ?Patient reports hearing voices over the past month that have worsened and that but ran away from his home where he was living in [place] with his father, because of the voices and what they were saying. Patient gave details saying there were Two different voices, one is loud saying they will rip him up, cut his eyes out and another which is softer saying they are going to tranquilizers him 1st and then cut him up. He reported delusional thought that someone put witchcraft on him; he does not think it is his mind playing tricks on him and AH is keeping him from sleeping. Today on unit patient reports to typewriters functional tester that he made all of this up. He denies any AH at all or any paranoid delusions. He said he no longer wanted to live at his father's house, not getting along with his father and so left to come down to [facility]. His plan was to [place] kidney thought would only take few hours but he was not able to get a ride and so ended up walking for 3 days. He reports that When he got here his feet were extremely cold and so he came to the emergency room. Because he was worried about being turned away, he says made up everything about AH and paranoid delusions, or any history of AVH. He denies any SI or HI or any history of SI at all. He acknowledges that he uses crack cocaine, fentanyl; says very little alcohol use. Patient reports he has some depression but thinks it is mostly from ADHD and says he would like to be on stimulant medication. Patient denies any history of manic type episodes or behaviors. Formulation/clinical reasoning Currently it is not clear if patient actually does have psychotic illness with AH and delusions or if he was in fact malingering, fabricating his symptoms in order to get a place to sleep. Or if substance- induced psychosis, though if this were the case, patient may be more willing to disclose . Patient is now asking for discharge. He is a little guarded and perhaps internally preoccupied though full have to continue to monitor to further discern. Patient does not want medication or treatment other than stimulant medication for ADHD. Trading Assistant explained that given his self report of AH and paranoid delusions, it would not be appropriate to start patient on stimulant medication at this time. Hospital course: 06/02 Patient out in the milieu but mostly keeping to himself. He remains adamant that all former reporting of psychotic symptoms were fabricated, denies any AVH, SI, HI. Patient says he is mostly looking for discharge. Somewhat odd, still hard to tell whether not internally preoccupied. Will continue to monitor. However so far good behavioral and impulse control 06/03 patient remains difficult with which to engage, superficially cooperative and not revealing much. It is difficult to tell if he is internally preoccupied. He denies AVH, SI, HI and says that past hospitalizations have also only been due to fabricating depression in order to get hospital bed for the night. Patient keeps to himself, but is in behavioral and impulse control. Will continue to monitor but if he remains stable will proceed with discharge 06/04 patient remains denying any psychiatric illness; wants to discharge tomorrow. Superficially cooperative, does not reveal much. Remains in good behavioral and impulse control. Patient remains consistently adamant that he fabricated psychotic symptoms to get a bed for few days. Patient will very likely continue to struggle substance abuse. However he is not in imminent risk for harm to self or others and appropriate for discharge. Plan: Twelve B Q 15 minute checks Patient refuses treatment Continue to monitor for psychosis, depression Will attempt collateral Patient educated on: diagnosis and substance abuse Informed Consent: understands Reason for continued inpatient stay Substantial Risk for: stable for discharge Time Spent With Patient Time: Total time managing care of this patient today ____ minutes.
[2024-06-04 20:00] VITALS: BP 133/69; RESP 16; TEMP 36.3; O2SAT 96
--- NOTE | 2024-06-05 08:49 | P.DS_ITS ---
DS: Providers Provider Date of Service: 06/05/24 Date of admission: 05/31/24 10:03 Date of discharge: 06/05/24 Primary care physician: Unknown Physician Attending physician on admission: Janak Guzman Attending physician on discharge: Janak Guzman DS: Diagnosis Discharge Diagnosis (1) Depression, major, recurrent, mild: Status: Acute (2) Cocaine use disorder: Status: Acute (3) Opioid use disorder: Status: Acute (4) Malingering: Status: Acute DS: Medications Discharge Medications Home Medications: Home Medications ?Medication ?Instructions ?Recorded ?Confirmed No Known Home Meds 05/31/24 05/31/24 Data Data Completed and Pending Completed studies during hospitalization [Text1]: 05/30/24 05/30/24 06/01/24 22:55 22:57 11:18 WBC 10.8 RBC 4.15 L Hgb 13.3 L Hct 37.2 L MCV 89.6 MCH 32.0 MCHC 35.8 RDW 13.3 Plt Count 277 MPV 9.0 L Immature Gran % (Auto) 0.2 Neut % (Auto) 70.2 Lymph % (Auto) 21.1 Winn % (Auto) 7.9 Eos % (Auto) 0.3 Baso % (Auto) 0.3 Lymph # (Auto) 2.3 Winn # (Auto) 0.9 Eos # (Auto) 0.0 Baso # (Auto) 0.0 Abs Immat Gran (auto) 0.02 Absolute Neuts (auto) 7.6 Absolute Nucleated RBC 0.000 Nucleated RBC % (auto) 0.0 Sodium 141 143 Potassium 3.7 4.0 Chloride 105 106 Carbon Dioxide 25 31 H Anion Gap 15 10 L BUN 19 H 19 H Creatinine 0.90 0.79 Estim Creat Clear Calc 145.8 164.7 Estimated GFR > 60 > 60 Random Glucose 97 Fasting Glucose 70 Estimat Average Glucose 94 Hemoglobin A1c % 4.9 Calcium 9.4 9.5 Magnesium 2.1 Total Bilirubin 0.8 0.4 AST 113 H 57 H ALT 84 H 71 H Alkaline Phosphatase 69 65 Troponin I High Sens 11.2 Total Protein 7.7 7.4 Albumin 4.3 4.0 Triglycerides 100 Cholesterol 161 LDL Cholesterol, Calc 68 HDL Cholesterol 73 Vitamin B12 322 Folate 16.6 TSH 0.56 Cancelled 0.42 Free T4 1.32 Urine Opiates Screen POSITIVE H Ur Buprenorphine Scrn Positive H Ur Oxycodone Screen Not Detected Urine Methadone Screen Not Detected Urine Fentanyl Screen POSITIVE H Ur Barbiturates Screen Not Detected Ur Phencyclidine Scrn Not Detected Ur Amphetamines Screen Not Detected U Benzodiazepines Scrn Not Detected Urine Cocaine Screen POSITIVE H U Marijuana (THC) Screen Not Detected Ethyl Alcohol < 10 Influenza Type A (PCR) NEGATIVE Influenza Type B (PCR) NEGATIVE RSV RNA Qual (PCR) NEGATIVE SARS-CoV-2 RNA (RT-PCR) NEGATIVE DS: Summary Hospital Course Hospital Course: hx of crime refused detention placement Time Spent with Patient Time attestation: Total time managing care of this patient today ____ minutes. Discharge Plan Discharge Anticipated Discharge Date/Time: 06/05/24 11:00 Patient Disposition: [facility] Discharge Diagnosis: MDD, recurrent, mild; malingering Referrals: [facility] (detention) [Other] - 1 Week (Patient declined detention referral. He is provided with information for local detention upon discharge to community.) [facility] ([facility] [place]) [Other] - 1 Week (Patient declined detention referral. He is provided with information for local detention upon discharge to community.) [facility]: [facility] [Other] - 1 Week (Patient declined detention referral. He is provided with information for local detention upon discharge to community.) [facility]: crisis services [Other] - 1 Week (Phone number provided at discharge for crisis services in community.) [facility] ([facility]): Crisis services [Other] - 1 Week (Phone number provided at discharge for crisis services in community.) Physician,Unknown J [Primary Care Provider] - 1 Week Discharge Medications: Continued No Known Home Meds Discharge Orders: Discharge Order (Routine); Ordered 06/05/24 Ordered By: Janak Guzman Diet: Regular diet Activity on Discharge: As tolerated Stand Alone Forms: Patient Portal Discharge page Print Language: Romansh Care Plan Goals: Maintain mood and safe behaviors Continue to pursue sobriety Practice coping skills Health Concerns: Mood stability and behaviors Sobriety Plan of Treatment: Consider engaging with a psychiatric provider Assessment: Risk assessment at time of discharge:? Patient was interviewed prior to discharge and found to be fully oriented and without any SI or HI. Patient has improved insight and judgment and wants to continue treatment. Patient is not in imminent risk of harm to self or others and has a safety plan that includes presenting to the closest ER or calling 911 if feeling unsafe.? Patient has been observed closely by nursing and unit staff throughout admission; patient has not engaged in any behaviors that suggest dangerousness to self or others and has demonstrated appropriate behaviors and impulse control
[2024-06-05] MEDS: Buprenorphine/Naloxone 8/2 mg FILM 1 FILM SUBLINGUAL (08:53)
[2024-06-05] MEDS: Thiamine HCL 100 MG TABLET PO (08:53)
[2024-06-05] MEDS: Multivitamin TABLET 1 TAB PO (08:53)
[2024-06-05] MEDS: Folic Acid 1 MG TABLET PO (08:53)
[2024-06-05] MEDS: OLANZapine 5 MG TABLET PO (08:53)
[2024-06-05 10:27] VITALS: BP 105/62; PULSE 64; TEMP 36.8; O2SAT 96
== END 2024-06-05 11:55 | disposition home or self-care (01) | DRG 751 ==
LOC: HO.ED 05-31 08:13 → HO.PM5 05-31 10:04
PROVIDERS: Emergency Medicine; Nurse Practitioner Family; Admitting Provider Clinical Nurse Specialist Psychiatric/Mental Health, Adult; Emergency Provider Emergency Medicine Emergency Medical Services; Visit Provider Clinical Nurse Specialist Psychiatric/Mental Health, Adult
DX: F33.0 Major depressive disorder, recurrent, mild (principal); D64.9 Anemia, unspecified; F17.210 Nicotine dependence, cigarettes, uncomplicated; F11.90 Opioid use, unspecified, uncomplicated; Z71.6 Tobacco abuse counseling; F14.10 Cocaine abuse, uncomplicated; F19.10 Other psychoactive substance abuse, uncomplicated; Z76.5 Malingerer [conscious simulation]; Z20.822 Contact with and (suspected) exposure to COVID-19
CPT/HCPCS: 0241U; 36415; 80053; 80061; 80307; 82607; 82746; 83036; 83735; 84439; 84443; 84484; 85025; 93005; 99285

== ENCOUNTER → 2024-05-30 22:45 | Outpatient (BNV) | payer SELFPAY | PROVIDERS: Admitting Provider Clinical Nurse Specialist Psychiatric/Mental Health, Adult; Emergency Provider Emergency Medicine Emergency Medical Services; Visit Provider Internal Medicine Cardiovascular Disease | DX: R00.2 Palpitations (principal) | CPT/HCPCS: 93010 ==

== ENCOUNTER → 2024-05-31 10:03 | Outpatient (BNV) | payer SELFPAY | PROVIDERS: Admitting Provider Clinical Nurse Specialist Psychiatric/Mental Health, Adult; Emergency Provider Emergency Medicine Emergency Medical Services; Visit Provider Psychiatry & Neurology Psychiatry | DX: F33.0 Major depressive disorder, recurrent, mild (principal); F29 Unspecified psychosis not due to a substance or known physiological condition; F14.10 Cocaine abuse, uncomplicated; F11.90 Opioid use, unspecified, uncomplicated | CPT/HCPCS: 90792; 99231; 99232 ==